=== PATIENT | male | born 1985 | race Caucasian/White ===

== ENCOUNTER 2016-09-09 19:51 | Emergency (ER) | payer OTHER ==
[~2016-09-09] VITALS: Ht 180.3 cm; Wt 90.7 kg
[~2016-09-09 19:51] MED LIST: UNKNOWN MEDS
--- NOTE | 2016-09-09 19:58 | NUR ---
PT BIB [facility] WITH A C/O OD. PT DENIES OD. PT IS AA&O X4. PT IS AMBULATORY. SOSA BARBOZA IS AT THE BEDSIDE EVALUATING THE PT. PT IS ON THE MONITOR AND CONTINUOUS PULSE OX.
--- NOTE | 2016-09-09 20:12 | NUR ---
PT CALLED A FRIEND TO PICK HIM UP, BUT FRIEND WAS UNABLE AT THIS TIME. PT THEN LEFT A MESSAGE FOR HIS MOTHER.
--- NOTE | 2016-09-09 21:09 | NUR ---
Patient discharged to home in stable condition. Written and verbal after care instructions given. Patient verbalizes understanding of instruction. PT AMBULATED TO THE LOBBY. PT IS TAKING A TAXI HOME. TAXI WAS CALLED. VSS.
--- NOTE | 2016-09-09 21:09 | NUR ---
PT WAS INSTRUCTED NOT TO DRIVE.
[2016-09-09 21:36] VITALS: BP 160/82
== END 2016-09-09 21:09 | disposition home or self-care (01) ==
LOC: ER 19:51
DX: T40.2X1A Poisoning by other opioids, accidental (unintentional), initial encounter (principal); F41.9 Anxiety disorder, unspecified; F90.9 Attention-deficit hyperactivity disorder, unspecified type; Y92.89 Other specified places as the place of occurrence of the external cause; Y93.89 Activity, other specified; Y99.8 Other external cause status
CPT/HCPCS: 99283; A4606